=== PATIENT | female | born 2000 | race African-American/Black ===

== ENCOUNTER 2025-01-22 12:35 | Emergency (ER) | payer OTHER, SELFPAY ==
--- NOTE | ~2025-01-22 | CT_ITS ---
EXAMINATION: CT abdomen pelvis w con DATE: 01/22/2025 15:35 INDICATION: Abdominal pain, nausea and vomiting TECHNIQUE: Computed tomography (CT) of the abdomen and pelvis was performed with 100 mL Omnipaque-350 intravenous contrast. Automated exposure control and iterative reconstruction technique were employed. The dose-length product was 513.36 mGy-cm. COMPARISON: None FINDINGS: Visualized lower lungs are clear. Heart size is normal. No pericardial or pleural effusion. Subtle geographic region of focal hepatic steatosis along the ligamentum teres. Gallbladder, spleen, pancreas, bilateral adrenal glands and kidneys are normal. Bowels including the appendix are normal. Bladder, retroverted uterus and bilateral ovaries are normal. No free intraperitoneal gas or fluid. No pathologically enlarged abdominal or pelvic lymphadenopathy. Spina bifida occulta at T12 and L1. IMPRESSION: 1. No acute intra-abdominal/pelvic process. Reviewed, dictated and finalized at location A.
[2025-01-22 12:39] VITALS: BP 142/69; PULSE 76; RESP 20; TEMP 36.1; O2SAT 100
[2025-01-22 14:50] LABS: BEDSIDEPREGUCG Negative (Negative)
[2025-01-22 14:52] LABS: Hematocrit 37.3 % (37.0-47.0); Hemoglobin 11.8 g/dL (12.0-15.0); Immature Granulocyte Percent A 0.5 % (0-0.5); Lymphocytes Absolute Auto 0.90 K/mm3 (0.9-3.2); Mean Corpuscular HGB Conc 31.6 g/dl (32-36); Mean Corpuscular Hemoglobin 27.6 pg (26-34); Mean Corpuscular Volume 87.1 fl (80-100); Nucleated Red Blood Cells Absolute Auto 0.000 K/mm3 (0.0-0.012); Nucleated Red Blood Cells Perc 0.0 % (0.0-0.2); Platelet Count Result 337 k/mm3 (150-375); Red Blood Count 4.28 M/mm3 (4.2-5.4); White Blood Count 10.7 K/mm3 (4.5-10.0)
[2025-01-22 15:00] LABS: Add Urine Microscopic? YES; Appearance Urine Clear (Clear); Glucose Urine UA Negative (Negative); Leukocyte Esterase Ur 2+ LEU/UL (Negative); Nitrate Urine Negative (Negative); Non Pathogenic Casts 0-2; Specific Grav Ur 1.029 (1.001-1.035)
[2025-01-22] MEDS: SODIUM CHLORIDE 0.9% IV 1,000 ML 999 ML IV CONT ×2 (15:04→15:05)
[2025-01-22] MEDS: FAMOTIDINE 20 MG/2 ML VIAL IV PUSH (15:05)
[2025-01-22] MEDS: PROCHLORPERAZINE EDISYLATE 10 MG/2 ML VIAL IV PUSH (15:05)
[2025-01-22] MEDS: PANTOPRAZOLE SODIUM IV 40 MG VIAL IV PUSH (15:05)
--- OUTSIDE RECORDS SUMMARY | 2025-01-22 15:07 | XMS_ITS | Clinical Summary ---
Author Organization [facility] Address [address] [facility] [place] [address] Care Team Providers Care Associate Publisher Name Role Phone Kalen Lima MD Primary Care Provider [phone] Source Comments [facility],non-owned Affiliates and Associated Physician Practices is amultiple site organization consisting of ambulatory clinics and hospital sitesin [place], [place], [place]. This disclosure is being madepursuant to the Care Everywhere program and may not contain all information available regarding this patient. Last updated 18.[facility] Allergies No known active allergies Medications * Be aware that medications may not be up to date on this document. Alwaysverify current medications with the patient. montelukast (SINGULAIR) 10 MG tablet Take 10 mg by mouth at bedtime. Active fluticasone propionate (FLUTICASONE PROPIONATE) 50 MCG/ACT nasal spray [place] 2 Sprays into each nostril at bedtime. 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 I believe that she does have a benign flow murmur, and do not believe that she needs any further cardiology follow up or evaluation at this time. Resolved Problems Problem Noted Date Diagnosed Date Resolved Date Two vessel umbilical cord, antepartum 04/04/2015 04/19/2015 Family History Medical History Relation Name Comments AR<65(female) Maternal Grandfather Relation Name Status Comments Maternal Grandfather Social History Tobacco Use Types Packs/Day Years Used Date Smoking Tobacco: Never Assessed Alcohol Use Standard Drinks/Week Comments No 0 (1 standard drink = 0.6 oz pur e alcohol) Comments No Sex and Gender Information Value Date Recorded Sex Assigned at Not on file Legal Sex Female 4:15 PM CDT Gender Identity Not on file Sexual Orientation Not on file Last Filed Vital Signs Vital Sign Reading Time Taken Comments Blood Pressure 90/58 01/28/2013 12:14 PM CDT Pulse 60 01/28/2013 12:14 PM CDT Temperature - - Respiratory Rate 20 01/28/2013 12:14 PM CDT Oxygen Saturation 99% 01/28/2013 12:14 PM CDT Inhaled Oxygen Concentration - - Weight 67.6 kg (149 lb 0.5 oz) 01/28/2013 12:14 PM CDT Height 173 cm (5' 8.11) 01/28/2013 12:14 PM CDT Body Mass Index 22.59 01/28/2013 12:14 PM CDT Plan of Treatment Health Maintenance Due Date Last Done Comments HIV SCREENING 01/21/2015 HPV VACCINE (1 - 3-dose series) 01/21/2015 CHLAMYDIA/GONORRHEA SCREENING 2016 HEPATITIS C SCREENING 01/17/2018 DTAP/TDAP/TD VACCINES (1 - Tdap) 01/21/2019 HEPATITIS B VACCINE (1 of 3 - 19+ 3-dose series) 01/21/2019 DEPRESSION SCREENING 05/20/2024 COVID-19 VACCINE (1 - 2023-2 5 season) 2025 INFLUENZA VACCINE (#1) 2025 ZOSTER VACCINE (1 of 2) 01/21/2050 HIB VACCINE Aged Out No longer eligi ble based on patient's age to complete this topic MENINGOCOCCAL (Group B) VACC INE SHARED DECISION-MAKING Aged Out No longer eligibl e based on patient's age to complete this topic MENINGOCOCCAL GROUPS A/C/Y/W VACCINE Aged Out No longer eligible b ased on patient's age to complete this topic PNEUMOCOCCAL VACCINE Aged Out No long er eligible based on patient's age to complete this topic Insurance MEDICAID - [place] [employer] [facility] Care Teams Associate Publisher Relationship Specialty Start Date End Date Kalen Lima MD [address] [place] [id number] PCP - General Pediatrics 01/20/13
--- OUTSIDE RECORDS SUMMARY | 2025-01-22 15:07 | XMS_ITS | Clinical Summary ---
Author Organization [facility] at [facility] Address [address] [place] [phone] Care Team Providers Care Classification Clerk Name Role Phone No, Physician Primary Care Provider [phone] Allergies Active Allergy Reactions Criticality Noted Date Comments Chocolate Rash Medium 06/13/2020 Rash Medications No known medications Active Problems Problem Noted Date Diagnosed Date Supervision of other normal , antepartu m 10/29/2024 Marijuana use 10/29/2024 Estimated Date of Delivery Comme nts Yes 06/06/2025 Based on Ultraso und Encounters Date Type Department Care Team Description 11/30/2024 Telephone [facility] Obstetrical Gynecology [address] [place] [phone] Lesvia Dalal MD 10/29/2024 5:36 PM CDT - 10/29/2024 11:59 PM CDT Hospital Encounter [facility] Lab [address] [place] [phone] Encounter for supervision of other normal in first trimester Discharge Disposition: Discharge to home or self care 10/29/2024 2:34 PM CDT - 10/29/2024 11:59 PM CDT Hospital Encounter [facility] [address] [place] [phone] Vaginal odor Discharge Disposition: Discharge to home or self care 10/29/2024 12:45 PM CDT Office Visit [facility] Obstetrical Gynecology [address] [place] [phone] Lesvia Dalal MD Encounter for supervision of other normal in first trimester (Primary Dx); Obesity affecting in first trimester, unspecified obesity type; Vaginal odor 10/29/2024 11:00 AM CDT Clinical Support [facility] Obstetrical Gynecology [address] [place] [address] [place] [phone] 10/29/2024 10:00 AM CDT Ancillary Procedure [facility] Obstetrical Gynecology [address] [place] [address] [place] [phone] Establish gestational age, ultrasound 10/29/2024 Results Follow-Up [facility] Obstetricok Gynecology [address] [place] [phone] Lesvia Dalal MD GTT 50gm 1hr gestational screen, Hemoglobin A1c, CBC without differential, Additional followed-up results: 13 10/29/2024 Orders Only [facility] Obstetrical Gynecology [address] [place] [phone] Osei Goldman MD Encounter for anatomic survey (Primary Dx) 10/29/2024 Telephone [facility] Obstetrical Gynecology [address] [place] [phone] Osei Goldman MD from Last 3 Months Family History Medical History Relation Name Comments Breast cancer Neg Hx Colon cancer Neg Hx Ovarian cancer Neg Hx Uterine cancer Neg Hx Social History Tobacco Use Types Packs/Day Years Used Date Smoking Tobacco: Never Smokeless Tobacco: Never Tobacco Cessation:Counseling Given: Not Answered Nadeau Depression Scale Answer Date Recorded Nadeau Depression Scale Total 2 10/29/2024 The thought of harming myself has occurred to me . Never 10/29/2024 Estimated Date of Delivery Comme nts Yes 06/06/2025 Based on Ultraso und Sex and Gender Information Value Date Recorded Sex Assigned at Not on file Legal Sex Female 8:44 PM [employer]OR OF [employer]IFT [employer] Gender Identity Not on file Sexual Orientation Not on file Obstetrics History Para Term AB IAB SAB Ectopic Multiple Livin g Live Births 2 1 1 1 1 Date Outcome GA Total Labor Labor/2nd/3rd Weight Sex Type Anes PTL Debra A1 A5 Name Clin 016 Term 41w 0d 2.92 kg (6 lb 7 oz) F Vag-S pont Epidur al N Livin g Complications:None Delivery Location:[place] Current Summary Episode Dates Number of Fetuses Estimated Date of Delivery 10/29/2024 - Present (2025) 1 06/06/2025 (set by Anastasiia Forrest, RN on 10/29/2024 based on Ultrasound on 10/29/2024) Dating Summary Based On RUBY GA Diff Last Menstrual Period on 08/14/2024 05/21/2025 +2w2d Ultrasound on 10/29/2024 06/06/2025 Working GA:8w4d Overview and Plan :Brewster Support person:Sal andres Delivery Plans Planned delivery method:Vaginal Planned delivery location:[facility] Overview Surveillance of EDC by 8 week US A+/I/-/-, HIV and RPR NR, Measles non-immune. Will recommend MMR pp Genetics: Anatomy: 20 weeks GCT: 26-28 weeks 3rd trim CBC/HIV/RPR Tdap: 27+ weeks GBS: 36 weeks, or sooner if early delivery indicated Social Barriers: none Mode of feeding: Method of contraception: Delivery Planning: TBD Obesity: early glucose ordered Vitals Pregravid Weight Height TWG (As of 2025) Pregrav id BMI 96.2 kg (212 lb) 175.3 cm (5' 9) 0 kg (0 lb) 31.29 Notes Progress Notes - Clinical Kang pport - 10/29/2024 - GA:8w4d 10/29/2024 - 8w4d - Anastasiia Forrest, RN Pt is doing well today. No issues to report. Dating US completed in US. RUBY reviewed with the pt. PNL ordered today. Early glucose ordered due to BMI. NIPT and carrier screen discussed with the pt. She will let us know if she wants to complete the testing. Pap is up to date. STI urine to be sent to the lab today. Tdap recommendations reviewed with the pt. EPDS and ILAN 7 completed in office. OB call schedule reviewed with the pt. NOB packet reviewed with the pt and her questions were answered. Progress Notes - Office Visi t - 10/29/2024 - GA:8w4d 10/29/2024 - 8w4d - Lesvia Dalal MD Initial OB Visit Subjective: Crys Lambert is a 24 y.o., at 8w4d, based on 1st trimester U/S, who presents for initial visit. No significant medical history. Prior 9 yrs ago. No issues. Having some N/V. Daily. She tried Zofran and B6 without relief. Menstrual History: Patient's last menstrual period was 08/14/2024. Sexual History: OB History 2 Para 1 Term 1 AB Living 1 SAB IAB Ectopic Multiple Live Births 1 # Outcome Date GA Labor/2nd Weight Sex Type Anes PTL Lv A1 A5 1 Term 07/10/15 41w0d 2.92 kg (6 lb 7 oz) F Vag-Spont Epidural N Living Location: Other 2 Current Past medical, surgical, and T[employer]BE [employer]ER history fully reviewed. Objective: BP 116/64 Ht 175.3 cm (5' 9) Wt 212 lb (96.2 kg) LMP 08/14/2024 BMI 31.31 kg/m General: NAD : Normal external labia, normal vaginal rai. See flow sheet for gestation -specific examination and vitals. See Episode Report for physical of record. Ultrasound findings: Single living IUP with LMP inconsistent with CRL today making EDC 06/06/2025. +YS, +FHTs. Normal adnexa. Assessment: Patient is a 24 y.o., at 8w4d, with a brewster confirmed on U/S today. Plan: Discussed management of N/V in , recommend trial of doxylamine +/- B6 again to help with this. Recommended small frequent meals, sips of liquids all throughout day. Surveillance of EDC by 8 week US Labs: ordered Genetics: plans NIPT next visit Anatomy: 20 weeks GCT: 26-28 weeks 3rd trim CBC/HIV/RPR Tdap: 27+ weeks GBS: 36 weeks, or sooner if early delivery indicated Social Barriers: none Mode of feeding: Method of contraception: Delivery Planning: TBD Obesity: early glucose ordered Recurrent BV hx: reporting odor today, vaginitis panel ordered today. Lesvia Dalal MD 10/29/2024 Last Filed Vital Signs Vital Sign Reading Time Taken Comments Blood Pressure 116/64 10/29/2024 12:40 PM CDT Pulse 102 05/23/2022 10:08 PM [employer] Temperature 36.8 C (98.3 F) 05/23/2022 12:50 PM [employer] Respiratory Rate 19 05/23/2022 10:08 PM [employer] Oxygen Saturation 94% 05/23/2022 10:08 PM [employer] Inhaled Oxygen Concentration - - Weight 96.2 kg (212 lb) 10/29/2024 12:40 PM CDT Height 175.3 cm (5' 9) 10/29/2024 12:40 PM CDT Body Mass Index 31.31 10/29/2024 12:40 PM CDT Plan of Treatment Health Maintenance Due Date Last Done Comments Cervical Cancer Screening 2000 DTaP/Tdap/Td Vaccine (1 - Tdap) 01/21/2011 Varicella Vaccines (1 of 2 - 13+ 2-dose series) 01/21/2013 HPV Vaccines (1 - 3-dose series) 01/21/2015 Hepatitis B Screening 01/21/2018 Regular Well Visit/Exam 18-64 07/28/2023 07/27/2022 Influenza Vaccine (#1) 2025 Depression Screening 10/29/2025 10/29/2024 Hepatitis C Screening Completed 10/29/2024 Pneumococcal vaccine <65 Aged Out No longer eligible based on patient's age to complete this topic Procedures Procedure Name Priority Date/Time Associated Diagnosis Comments DRUGS OF ABUSE SCREEN, URINE WITH REFLEX CONFIRMATION Routine 10/29/2024 3:21 PM CDT Encounter for supervision of other normal in first trimester TRICHOMONAS VAGINALIS PCR Routine 10/29/2024 3:21 PM CDT Encounter for supervision of other normal in first trimester URINE CULTURE Routine 10/29/2024 3:21 PM CDT Encounter for supervision of other normal in first trimester N. GONORRHOEAE/C. TRACHOMATIS AMPLIFICATION Routine 10/29/2024 3:21 PM CDT Encounter for supervision of other normal in first trimester VAGINITIS PANEL Routine 10/29/2024 1:01 PM CDT Vaginal odor ANTIBODY SCREEN Routine 10/29/2024 12:36 PM CDT Encounter for supervision of other normal in first trimester ABO/RH Routine 10/29/2024 12:36 PM CDT Encounter for supervision of other normal in first trimester CBC WITHOUT DIFFERENTIAL Routine 10/29/2024 12:36 PM CDT Encounter for supervision of other normal in first trimester HEMOGLOBIN ANALYSIS BY ELECTROPHORESIS Routine 10/29/2024 12:36 PM CDT Encounter for supervision of other normal in first trimester HEMOGLOBIN A1C Routine 10/29/2024 12:36 PM CDT Encounter for supervision of other normal in first trimester TYPE AND SCREEN Routine 10/29/2024 12:36 PM CDT Encounter for supervision of other normal in first trimester GTT 50GM 1HR GESTATIONAL SCREEN Routine 10/29/2024 12:36 PM CDT Obesity affecting in first trimester, unspecified obesity type HEPATITIS B SURFACE ANTIGEN Routine 10/29/2024 12:36 PM CDT Encounter for supervision of other normal in first trimester HEPATITIS C ANTIBODY Routine 10/29/2024 12:36 PM CDT Encounter for supervision of other normal in first trimester HIV 1/2 ANTIBODY PLUS P24 ANTIGEN Routine 10/29/2024 12:36 PM CDT Encounter for supervision of other normal in first trimester MEASLES IGG ANTIBODY Routine 10/29/2024 12:36 PM CDT Encounter for supervision of other normal in first trimester RPR Routine 10/29/2024 12:36 PM CDT Encounter for supervision of other normal in first trimester RUBELLA IGG Routine 10/29/2024 12:36 PM CDT Encounter for supervision of other normal in first trimester VARICELLA ZOSTER ANTIBODY, IGG Routine 10/29/2024 12:36 PM CDT Encounter for supervision of other normal in first trimester US OB UNDER 14 WEEKS W ENDOVAGINAL Schedule Routine, Read Routine (OP Routine) 10/29/2024 10:23 AM CDT Establish gestational age, ultrasound from Last 3 Months Results * N. gonorrhoeae/C. trachomatis Amplification Urine (10/29/2024 3:21 PM CDT) C. trachomatis Not Detected [facility] Comment:Testing performed by : [facility], [address] [place]., [address] N. gonorrhoeae Not Detected [facility] Comment: Interpretive Data This assay detects Chlamydia trachomatis and Neisseria gonorrhoeae by nucleic acid amplification testing (NAAT). This assay has been cleared by the [place] Food and Drug administration. The performance characteristics of this test have been verified by the [facility] Molecular Infectious Disease laboratory. The performance characteristics of this test have not been evaluated in individuals less than 14 years of age. Current Interpretive Data was last revised on 2023. Testing performed by: [facility], [address] [place]., [address] Urine (None) 10/29/2024 3:21 PM CDT 10/30/2024 9:02 AM CDT us Lesvia Dalal MD LAB MICROBIOLOGY - GENERA L ORDERABLES Final Result [facility] VERA [address] [facility] [place] [address] [facility] * (ABNORMAL) Drugs of Abuse Screen, Urine with Reflex Confirmation (10/29/2024 3:21 PM CDT) [facility] Amphetamine, ur Not Detected [facility] 500ng/mL Comment: Interpretive Data - Amphetamines: Samples containing greater than 500 ng/mL d-methamphetamine or other cross-reacting amphetamine compounds are reported as positive. Amphetamine immunoassays are subject to significant false positive rates due to cross-reactivity of non-amphetamine drugs. Confirmatory testing required for definitive results. Current Interpretive Data was last reviewed 2022. Testing performed by: [address] [address] Barbiturates, ur Not Detected CutOff 200ng/mL [facility] Comment: Interpretive Data - Barbiturates: Samples containing greater than 200 ng/mL secobarbital or other cross-reacting barbiturate compounds are reported as positive. False positive and false negative results are possible. Confirmatory testing required for definitive results. Current Interpretive Data was last reviewed 2022. Testing performed by: [address] [address] Benzodiazepines, ur Not Detected CutOff 100ng/mL [facility] Comment: Interpretive Data - Benzodiazepines: Samples containing greater than 100 ng/mL nordiazepam or other cross-reacting compounds are reported as positive. False positive and false negative results are possible. Confirmatory testing required for definitive results. Current Interpretive Data was last reviewed 2022. Testing performed by: [address] [address] Cannabinoids, ur Screen Positive, presumptive (A) CutOff 50 ng/mL [facility] Comment: Interpretive Data - Cannabinoids: Samples containing greater than 50 ng/mL delta-9 THC -COOH or other cross- reacting compounds are reported as positive. False positive and false negative results are possible. Confirmatory testing required for definitive results. Current Interpretive Data was last reviewed 2022. Testing performed by: [address] [address] Cocaine, ur Not Detected CutOff 150ng/mL [facility] Comment: Interpretive Data - Cocaine: Samples containing greater than 150 ng/mL benzoylecgonine or other cross- reacting compounds are reported as positive. False positive and false negative results are possible. Confirmatory testing required for definitive results. Current Interpretive Data was last reviewed 2022. Testing performed by: [address] [address] Fentanyl, Ur Not Detected CutOff 5 ng/mL [facility] Comment: Interpretive Data - Fentanyl: Samples containing greater than 1 ng/mL fentanyl or other cross-reacting fentanyl compounds are reported as positive. False positive and false negative results are possible. Confirmatory testing required for definitive results. Current Interpretive Data was last reviewed 2022. Testing performed by: [address], [place]., [address] Methadone, ur Not Detected CutOff 300ng/mL [facility] Comment: Interpretive Data - Methadone: Samples containing greater than 300 ng/mL d,l-methadone or other cross-reacting compounds are reported as positive. False positive and false negative results are possible. Confirmatory testing required for definitive results. Current Interpretive Data was last reviewed 2022. Testing performed by: [address] [address] Opiates, ur Not Detected CutOff 300ng/mL [facility] Comment: Interpretive Data - Opiates: Samples containing greater than 300 ng/mL morphine or other cross-reacting compounds are reported as positive. False positive and false negative results are possible. Confirmatory testing required for definitive results. Current Interpretive Data was last reviewed 2022. Testing performed by: [address] [address] Oxycodone, ur Not Detected CutOff 100ng/mL [facility] Comment: Interpretive Data - Oxycodone: Samples containing greater than 100 ng/mL oxycodone or other cross-reacting compounds are reported as positive. False positive and false negative results are possible. Confirmatory testing required for definitive results. Current Interpretive Data was last reviewed 2022. Testing performed by: [address] [address] Phencyclidine, ur Not Detected CutOff 25 ng/mL [facility] Comment: Interpretive Data - Phencyclidine: Samples containing greater than 25 ng/mL phencyclidine or other cross-reacting compounds are reported as positive. False positive and false negative results are possible. Confirmatory testing required for definitive results. Current Interpretive Data was last reviewed 2022. Testing performed by: [facility], [address] [place] [address]., [address] Urine Creatinine 202 mg/dL [facility] Comment: Interpretive Data Urine Creatinine: < 10 mg/dL is extremely dilute = or > 10 but < 20 mg/dL is dilute = or > 20 mg/dL is normal Current Interpretive Data was last revised on 2017. Testing performed by: [facility], [address] [place] [address]., [address] Urine 10/29/2024 3:21 PM CDT 10/29/2024 7:28 PM CDT Narrative SHAZIA - 10/29/2024 8:03 PM CDT Drug of Abuse screening is performed by immunoassay for medical purposes only. This is not to be used for Pain Management purposes. If Detected, confirmation testing will be performed for Amphetamines, Cocaine, Fentanyl, Methadone, Opiates, Oxycodone or Phencyclidine. Lesvia Dalal MD LAB URINE ORDERABLES Agata anders Result [facility] [address] [facility] Department [place] [address] * Trichomonas vaginalis PCR Urine (10/29/2024 3:21 PM CDT) Pathologist [facility] Trichomonas DNA Not Detected [facility] Comment: Interpretive Data This assay detects Trichomonas vaginalis by nucleic acid amplification testing (NAAT). This assay has been cleared by the [place] Food and Drug administration. The performance characteristics of this test have been verified by the [facility] Molecular Infectious Disease laboratory. The performance of this test has not been evaluated in individuals less than 18 years of age. Current Interpretive Data was last revised on 2023. Testing performed by: [facility], [address] [place] [address] Urine 10/29/2024 3:21 PM CDT 10/30/2024 9:02 AM CDT Lesvia Dalal MD LAB MICROBIOLOGY - GENERA L ORDERABLES Final Result Performing Organization Address City/[facility] Co de Phone Number [address] [place] [address] [facility] * Urine culture Urine, clean voided (10/29/2024 3:21 PM CDT) Report Final Report: Less than 100,000 colonies/mL (clinically insignificant growth based on current clinical standards) Comment:Testing performed by : [facility], [address] [place] [place] [address] Organism (CLINICALLY INSIGNIFICANT GROWTH [facility]IA Urine, clean voided 10/29/2024 3:21 PM CDT 10/29/2024 10:06 PM CDT Narrative SHAZIA - 10/31/2024 8:26 AM CDT Testing performed by [facility] Microbiology Laboratory ([phone]) Lesvia Dalal MD LAB MICROBIOLOGY - GENERA L ORDERABLES Final Result Performing Organization Address [facility] Co de Phone Number [address] [address] * (ABNORMAL) Vaginitis panel Vaginal (10/29/2024 1:01 PM CDT) Bacterial Vaginosis Detected(A) Not Detected Comment: The BV organism targets of this test can be commensal in women; results should be considered in conjunction with clinical presentation to determine the disease status. Testing performed by: [address] [address] Margy group Not Detected Not Detected [facility]IA Comment:Testing performed by : [address] [address] Margy glabrata/ krusei Not Detected Not Detected [facility] Comment:Testing performed by : [address] [address] Trichomonas DNA Not Detected Not Detected [facility] Comment:Testing performed by : [address] [place] [address] Vaginal 10/29/2024 1:01 PM CDT 10/29/2024 5:31 PM CDT Narrative SHAZIA - 10/29/2024 6:44 PM CDT The Cepheid Xpert Xpress MVP test detects DNA targets from anaerobic bacteria associated with bacterial vaginosis, Margy species associated with vulvovaginal candidiasis, and Trichomonas vaginalis by nucleic acid amplification testing (NAAT). Results should be interpreted in conjunction with other clinical data. This test cannot be used to assess therapeutic success or failure because target nucleic acids may persist following antimicrobial therapy. This test has been cleared by the [place] Food and Drug Administration to aid in the diagnosis of vaginal infections in symptomatic women ages 14 and older. The performance characteristics of this test have been verified by the [facility] Laboratory. us Lesvia Dalal MD LAB MICROBIOLOGY - GENERA L ORDERABLES Final Result SH[facility]IA [address] [facility] Department of Laboratories [place], [place] [id number] * (ABNORMAL) GTT 50gm 1hr gestational screen (10/29/2024 12:36 PM CDT) GTT 50g gest screen 141(H) <=140 mg/dL Comment: Interpretive Data Used for suspected gestational diabetes. The screening test uses 50 grams of glucose with sample obtained 1 hr later. Normal range: < 140 mg/dL. A glucose value of >140 mg/dL generally indicates the need for a full diagnostic tolerance test. Reference Interval Info: Diabetes Care 2005, Vol 28. Supplement 1,S37-S42. Report of the Expert Committee on the Diagnosis and Classification of Diabetes Mellitus. Diabetes Care 2020; 43(Supplement 1):S14-31. Current interpretive data was last revised on 2020. Testing performed by: [address] [address] Blood 10/29/2024 12:3 6 PM CDT 10/29/2024 1:38 PM CDT us Lesvia Dalal MD LAB BLOOD ORDERABLES Agata l Result Performing Organization Address City/[facility] Co de Phone Number SHAZIA [address] [address] * HIV 1/2 Antibody plus p24 Antigen Blood (10/29/2024 12:36 PM CDT) [facility] HIV 1/2 ab + p24 ag Nonreactive Nonreactive Comment:Nonreactive for HIV- 1 antigen and HIV-1/HIV-2 antibodies. No laboratory evidence of HIV infection. If acute HIV infection is suspected, consider testing for HIV-1 RNA. Current interpretive data was last revised on 22. Blood 10/29/2024 12:3 6 PM CDT 10/29/2024 4:36 PM CDT Lesvia Dalal MD LAB MICROBIOLOGY - GENERA L ORDERABLES Final Result Performing Organization Address [facility] Co de Phone Number SHAZIA [address] [address] * (ABNORMAL) Hemoglobin analysis by electrophoresis (10/29/2024 12:36 PM CDT) [facility] RBC 3.90 3.90 - 5.20 M/cumm Comment:Testing performed by : [facility], [address] [place]., [address] Hgb 11.1(L) 11.9 - 15.5 g/dL [facility] VERA Comment:Testing performed by : [facility], [address] [place]., [address] MCV 86.9 81.3 - 96.4 fL [facility]IA VERA Comment:Testing performed by : [facility], [address] [place]., [address] Rdw 13.3 11.1 - 14.9 % [facility] VERA Comment:Testing performed by : [facility], [address] [place]., [address] Hgb electrophoresis , interp Please see comment SHAZIA VERA Comment: Normal hemoglobin pattern for age Reviewed and signed by Kenny Ding MD, PhD 11/03/2024 Testing performed by: [facility], [address] [place]., [address] Hgb A 97.4 96.0 - 98.5 % [facility]IA Comment:Testing performed by : [facility], [address] [place]., [address] Hgb A2 2.6 1.5 - 3.2 % [facility]IA Comment:Testing performed by : [facility], [address] [place]., [address] Hgb F <0.4 0.0 - 0.9 % [facility] Comment:Testing performed by : [facility], [address] [place]., [address] Blood 10/29/2024 12:3 6 PM CDT 10/29/2024 1:39 PM CDT us Lesvia Dalal MD LAB BLOOD ORDERABLES Agata anders Result [facility] [address] [facility] [place] [address] * Hepatitis C antibody Blood (10/29/2024 12:36 PM CDT) Hep C Ab Nonreactive Nonreactive Comment: Antibodies to HCV not detected. Does NOT exclude the possibility of recent exposure to HCV. Current interpretive data was last revised on 22 Interpretive Data Nonreactive: Antibodies to HCV not detected. Does NOT exclude the possibility of recent exposure to HCV. Equivocal: Equivocal for HCV antibodies. Supplemental molecular testing will be automatically performed to determine infection status in accordance with current CDC screening recommendations. Reactive: Positive for HCV antibodies. This may represent current or past HCV infection. Supplemental molecular testing will be automatically performed to determine current infection status in accordance with current CDC screening recommendations. Interpretive data was last revised on 2019. Blood 10/29/2024 12:3 6 PM CDT 10/29/2024 4:36 PM CDT Lesvia Dalal MD LAB MICROBIOLOGY - GENERA L ORDERABLES Final Result [address] [address] * (ABNORMAL) Measles IgG antibody Blood (10/29/2024 12:36 PM CDT) Pathologist [facility] Measles IgG Nonreactiv e(A) Comment: Non-reactive: No detectable antibody to measles. Such individuals are presumed to be uninfected and susceptible to primary infection. Testing performed by: [facility], [address] [place]., [address] Blood 10/29/2024 12:3 6 PM CDT 10/29/2024 7:41 PM CDT Lesvia Dalal MD LAB MICROBIOLOGY - GENERA L ORDERABLES Final Result Performing Organization Address [facility] Co de Phone Number [address] [address] * ABO/Rh (10/29/2024 12:36 PM CDT) Pathologist [facility] ABO/Rh A Positive Comment:Testing performed by : [facility], [address] [place] [address]., [id number] Blood 10/29/2024 12:3 6 PM CDT 10/29/2024 1:38 PM CDT Narrative SHAZIA - 10/29/2024 2:04 PM CDT Has the patient had Daratumumab or Isatuximab in the past 6 months?->Unknown Hx of or candidate for Bone Marrow/Stem Cell transplant?->No Lesvia Dalal MD LAB BLOOD BANK TEST ORDER WILFRIDO Final Result Performing Organization Address City/[facility]/ZIP Co de Phone Number [address] [address] * Rubella IgG antibody Blood (10/29/2024 12:36 PM CDT) Rubella IgG Reactive Reactive Blood 10/29/2024 12:3 6 PM CDT 10/29/2024 4:36 PM CDT Lesvia Dalal MD LAB MICROBIOLOGY - GENERA L ORDERABLES Final Result Performing Organization Address City/[facility]/ZIP Co de Phone Number [address] [place] [address] * RPR Blood (10/29/2024 12:36 PM CDT) Pathologist [facility] RPR Nonreactive Nonreactive Comment:Testing performed by : [facility], [address] [facility] [place]., [address] Blood 10/29/2024 12:3 6 PM CDT 10/29/2024 7:41 PM CDT Lesvia Dalal MD LAB MICROBIOLOGY - GENERA L ORDERABLES Final Result Performing Organization Address City/[facility] Co de Phone Number [address] [place] [address] * Hepatitis B Surface Antigen Blood (10/29/2024 12:36 PM CDT) HepBsAg Nonreactive Nonreactive Blood 10/29/2024 12:3 6 PM CDT 10/29/2024 4:36 PM CDT Levsia Dalal MD LAB MICROBIOLOGY - GENERA L ORDERABLES Final Result Performing Organization Address City/[facility]/ZIP Co de Phone Number [address] [place] [address] * (ABNORMAL) CBC without differential (10/29/2024 12:36 PM CDT) WBC 7.92 3.80 - 9.90 K/cumm Comment:Testing performed by : [address] [address] Hgb 11.1(L) 11.9 - 15.5 g/dL SHAZIA Comment:Testing performed by : [address] [address] Hct 34.5(L) 35.6 - 45.5 % SHAZIA Comment:Testing performed by : [address] [address] Plt 298 150 - 400 K/cumm SHAZIA Comment:Testing performed by : [address] [address] MPV 11.8 9.1 - 12.3 fL SHAZIA Comment:Testing performed by : [address], [address] RBC 3.90 3.90 - 5.20 M/cumm SHAZIA Comment:Testing performed by : [address], [address] MCV 88.5 81.3 - 96.4 fL SHAZIA Comment:Testing performed by : [address] [address] MCH 28.5 27.1 - 33.3 pg SHAZIA Comment:Testing performed by : [address], [address] MCHC 32.2(L) 32.3 - 35.7 g/dL SHAZIA Comment:Testing performed by : [address], [address] RDW CV 13.2 11.1 - 14.9 % SHAZIA Comment:Testing performed by : [address] [address] RDW SD 42.8 35.7 - 48.1 fL SHAZIA Comment:Testing performed by : [address], [address] NRBC abs 0.00 0.00 - 0.01 K/cumm SHAZIA Comment:Testing performed by : [address], [address] Blood 10/29/2024 12:3 6 PM CDT 10/29/2024 1:38 PM CDT Lesvia Dalal MD LAB BLOOD ORDERABLES Agata l Result [address] [place] [address] * Antibody screen (10/29/2024 12:36 PM CDT) Pathologist [facility] Vilma, indirect, Gel Interpretation Negative ABSC Comment:Testing performed by : [facility], [address] [place] [address]., [id number] Blood 10/29/2024 12:3 6 PM CDT 10/29/2024 1:38 PM CDT Narrative [facility] - 10/29/2024 2:15 PM CDT Has the patient had Daratumumab or Isatuximab in the past 6 months?->Unknown Hx of or candidate for Bone Marrow/Stem Cell transplant?->No Lesvia Dalal MD LAB BLOOD BANK TEST ORDER WILFRIDO Final Result Performing Organization Address [facility] Co de Phone Number [address] [address] * Varicella Zoster IgG antibody Blood (10/29/2024 12:36 PM CDT) [facility] VZV IgG Reactive Reactive Comment: Reactive: Results suggest response to immunization or prior exposure to the virus. Testing performed by: [facility], [address] [place]., [address] Blood 10/29/2024 12:3 6 PM CDT 10/29/2024 7:41 PM CDT Lesvia Dalal MD LAB MICROBIOLOGY - GENERA L ORDERABLES Final Result Performing Organization Address City/[facility]/ZIP Co de Phone Number [address] [place] [address] * Hemoglobin A1c (10/29/2024 12:36 PM CDT) Hgb A1C 5.1 4.0 - 5.6 % Comment:Testing performed by : [facility], [address] [place] [address]., [id number] Estimated Average Glucose 100 mg/dL SHAZIA Comment: The ADA recommends reporting an estimated Average Glucose (eAG) with all Hemoglobin A1c results using the equation derived from a study of 507 normal and diabetic adults. Minority populations were underrepresented and children were not included. (Diabetes Care 31:7672-5186, 2008). The eAG is not equivalent to a fasting glucose. Testing performed by: [facility], [address] [place] [address]., [address] Blood 10/29/2024 12:3 6 PM CDT 10/29/2024 1:38 PM CDT us Lesvia Dalal MD LAB BLOOD ORDERABLES Agata l Result SHAZIA [address] [facility] [place] [address] * US OB Under 14 Weeks W Endovaginal (10/29/2024 10:23 AM CDT) Anatomical Region Laterality Modality Abdomen N/A Ultrasound 10/29/2024 10:2 4 AM CDT Impressions 10/29/2024 12:44 PM CDT Single living IUP with LMP inconsistent with CRL today making EDC 06/06/2025. +YS, +FHTs. Normal adnexa. Narrative Procedure Note Lesvia Dalal MD - 10/29/2024 IMPRESSION: Single living IUP with LMP inconsistent with CRL today making EDC06/06/2025. +YS, +FHTs. Normal adnexa. Lesvia Dalal MD IMG OB US PROCEDURES Agata l Result from Last 3 Months Insurance IDPA IDPA Care Teams Classification Clerk Relationship Specialty Start Date End Date No, Physician PCP - General 02/28/21
--- OUTSIDE RECORDS SUMMARY | 2025-01-22 15:07 | XMS_ITS | Patient Health Record ---
Author Organization [employer] Address [address] [place] [id number] Care Team Providers Care Audio Experience Expert Name Role Phone SARIAH PEGUERO Unavailable [phone] REASON FOR REFERRAL No Information SOCIAL HISTORY Tobacco Use: Social History Observation Description Date Details (start date - stop date) Never Smoker NA - NA Sex Assigned At : Social History Observation Description Sex Assigned At Unknown Recreational drug use: Question Answer Notes Are you a: nonsmoker PROBLEMS Problem Type ICD Code Onset Dates Problem Status W/U Status Risk SNOMED Code Notes Problem Supervision of normal first (Z34.00) Active confirmed [id number] PLAN OF TREATMENT No Information Insurance Providers Payer Name Payer Address Payer Phone Subscriber Number Group Number Insured Name Patient Relationship to Insured Coverage Start Date Coverage End Date [facility] [address] [place] [phone] [id number] Crys Lambert Self - patient is the insured 5
[2025-01-22 15:11] LABS: Alanine Aminotransferase 21 U/L (6-35); Albumin Level 4.8 g/dL (3.5-5.1); Alkaline Phosphatase 88 U/L (38-126); Anion Gap 12 mmol/L (4-12); Aspartate Amino Transferase 31 U/L (14-36); Bilirubin,Total 0.5 mg/dL (0.2-1.3); Blood Urea Nitrogen 12 mg/dL (7-17); Calcium 9.8 mg/dL (8.4-10.2); Carbon Dioxide 25 mmol/L (22-30); Chloride 104 mmol/L (98-107); Estimated Glomerular Filt Rate > 60; Glucose 111 mg/dL (65-110); Lipase 36 U/L (23-300); Potassium 4.0 mmol/L (3.4-5.0); Sodium 141 mmol/L (137-145); Total Protein 9.0 g/dL (6.3-8.2)
--- NOTE | 2025-01-22 15:31 | ED_ITS ---
HPI - General Adult General Chief complaint: Abdominal Pain Stated complaint: vomiting blood today Time Seen by Provider: 01/22/25 14:50 History of Present Illness HPI narrative: Patient 25-year-old female presents emergency department with chief complaint of abdominal pain. Patient reports that she went out last night for her birthday and drank a lot of drinks the patient states she believes she may have gotten alcohol poisoning last night and reports that she has been vomiting all throughout the day the patient reports that she vomited so much that she had some blood in her vomit the patient denies black tarry stools reports he still feels nauseated at this time Related Data Allergies Allergy/AdvReac Type Severity Reaction Status Date / Time No Known Allergies Allergy Verified 01/22/25 12:38 Review of Systems 2 Review of Systems: A 10 system review of systems was completed on the patient and is negative except for what is stated in the HPI. Nursing and ancillary documentation was reviewed. Exam 2 Narrative: GENERAL: Well-appearing, well-nourished, and in no acute distress. HEAD: Normocephalic, atraumatic. EYES: PERRLA and EOMI. ENT: Nares clear, no rhinorrhea or epistaxis. Mucous membranes moist. NECK: Supple. CHEST: Clear to auscultation. No respiratory distress. HEART: Regular rate and rhythm. No murmur heard. Normal peripheral pulses. ABDOMEN: Soft, diffuse mild tenderness, nondistended, normal active bowel sounds. EXTREMITIES: Normal range of motion. No edema. SKIN: Warm, dry, no rash. NEURO: No focal deficits. Alert and oriented x3. PSYCH: Normal mood and affect. Course Vital Signs Vital signs: Vital Signs Temperature 36.1 C L 01/22/25 12:39 Pulse Rate 76 01/22/25 12:39 Respiratory Rate 01/22/25 12:39 Blood Pressure 142/69 H 01/22/25 12:39 Pulse Oximetry 100 01/22/25 12:39 Oxygen Delivery Room Air 01/22/25 12:39 Temperature 36.1 C L 01/22/25 12:39 Pulse Rate 76 01/22/25 12:39 Respiratory Rate 20 01/22/25 12:39 Blood Pressure 142/69 H 01/22/25 12:39 Pulse Oximetry 100 01/22/25 12:39 Oxygen Delivery Room Air 01/22/25 12:39 Medical Decision Making [facility] Narrative Medical decision making narrative: Differential diagnosis includes dehydration, gastritis, gastroenteritis, alcohol induced nausea vomiting, UTI, intra-abdominal infection Laboratory studies were obtained showed urinalysis with 4+ ketones and 51-100 white blood cells in the urine 2+ leukocyte esterase CBC showed a white count of 10.7 electrolytes were within normal limits lipase was normal at 36 CT scan of the abdomen pelvis showed no acute abnormality The patient be discharged home with a prescription for Keflex and a prescription for Zofran Vital Signs Vital Signs: Vital Signs Temperature 36.1 C L 01/22/25 12:39 Pulse Rate 76 01/22/25 12:39 Respiratory Rate 20 01/22/25 12:39 Blood Pressure 142/69 H 01/22/25 12:39 Pulse Oximetry 100 01/22/25 12:39 Oxygen Delivery Room Air 01/22/25 12:39 Temperature 36.1 C L 01/22/25 12:39 Pulse Rate 76 01/22/25 12:39 Respiratory Rate 20 01/22/25 12:39 Blood Pressure 142/69 H 01/22/25 12:39 Pulse Oximetry 100 01/22/25 12:39 Oxygen Delivery Room Air 01/22/25 12:39 Lab Data 01/22/25 14:47 01/22/25 14:47 Labs: Lab Results 01/22/25 01/22/25 Range/Units 14:45 14:47 WBC 10.7 H (4.5-10.0) K/mm3 RBC 4.28 (4.2-5.4) M/mm3 Hgb 11.8 L (12.0-15.0) g/dL Hct 37.3 (37.0-47.0) % MCV 87.1 (80-100) fl MCH 27.6 (26-34) pg MCHC 31.6 L (32-36) g/dl RDW 13.4 (11.5-14.5) % Plt Count 337 (150-375) k/mm3 MPV 11.4 H (7.4-10.4) fl Immature Gran % (Auto) 0.5 (0-0.5) % Neut % (Auto) 87.7 H (45.5-73.1) % Lymph % (Auto) 8.4 L (18.3-44.2) % [place] % (Auto) 3.4 (2.6-8.5) % Eos % (Auto) 0.0 (0-4.4) % Baso % (Auto) 0.0 L (0.2-1.2) % Lymph # (Auto) 0.90 (0.9-3.2) K/mm3 [place] # (Auto) 0.4 (0.1-0.6) K/mm3 Eos # (Auto) 0.0 (0-0.3) K/mm3 Baso # (Auto) 0.0 (0.0-0.1) K/mm3 Abs Immat Gran (auto) 0.05 H (0.00-0.031) K/mm3 Absolute Neuts (auto) 9.4 H (1.3-6.7) K/mm3 Absolute Nucleated RBC 0.000 (0.0-0.012) K/mm3 Nucleated RBC % 0.0 (0.0-0.2) % Sodium 141 (137-145) mmol/L Potassium 4.0 (3.4-5.0) mmol/L Chloride 104 (98-107) mmol/L Carbon Dioxide 25 (22-30) mmol/L Anion Gap 12 (4-12) mmol/L BUN 12 (7-17) mg/dL Creatinine 0.64 L (0.7-1.0) mg/dL Estim Creat Clear Calc Not Reportable Estimated GFR > 60 (59 - ) Glucose 111 H (65-110) mg/dL Calcium 9.8 (8.4-10.2) mg/dL Total Bilirubin 0.5 (0.2-1.3) mg/dL AST 31 (14-36) U/L ALT 21 (6-35) U/L Alkaline Phosphatase 88 (38-126) U/L Total Protein 9.0 H (6.3-8.2) g/dL Albumin 4.8 (3.5-5.1) g/dL Lipase 36 (23-300) U/L Urine Color Yellow (Yellow) Urine Appearance Clear (Clear) Urine pH 8.0 (5.0-9.0) Ur Specific [place] 1.029 (1.001-1.035) Urine Protein 1+ H (Negative) mg/dL Urine Glucose (UA) Negative (Negative) mg/dL Urine Ketones 4+ H (Negative) mg/dL Ur Blood (Man) 2+ H (Negative) Urine Nitrate Negative (Negative) Urine Bilirubin Negative (Negative) Urine Urobilinogen 1.0 (<2.0) mg/dL Leukocyte Esterase Rfl 2+ H (Negative) CHANDLER/UL Urine RBC 11-20 H (0-2) /hpf Urine WBC 51-100 H (0-3) /hpf Ur Squamous Epith Cells None seen (Few) /hpf Urine Bacteria None seen /hpf Urine Casts 0-2 POC Urine HCG, Qual Negative (Negative) Discharge Plan Discharge Clinical Impression: Nausea and vomiting, Abdominal pain, UTI (urinary tract infection) Patient Disposition: Home Condition: Stable Instructions: Antibiotic Form, Urinary Tract Infection in Women (ED), Acute Nausea and Vomiting (ED), Abdominal Pain (ED) Patient Language: Cook Islander Prescriptions: New ondansetron 4 mg tablet,disintegrating 4 mg PO Q8H PRN (Reason: nausea and vomiting) Qty: 10 0RF cephalexin 500 mg capsule 500 mg PO Q12H 7 Days Qty: 14 0RF Follow-up/Referrals: Mendel Curiel MD [Physician, Family Practice] PHYSICIAN,CLINICAL RN LIAISON [Primary Care Provider, Internal Medicine] Time of Disposition: 16:12
[2025-01-22 16:09] VITALS: BP 120/53; PULSE 70; RESP 16; TEMP 36.3; O2SAT 100
== END 2025-01-22 16:46 | disposition home or self-care (01) ==
PROVIDERS: Student in an Organized Health Care Education/Training Program; Emergency Provider Emergency Medicine
DX: N39.0 Urinary tract infection, site not specified (principal); R11.2 Nausea with vomiting, unspecified; R10.9 Unspecified abdominal pain
CPT/HCPCS: 36415; 74177; 80053; 81001; 81025; 83690; 85025; 87086; 96361; 96374; 96375; 99284; J0780; J1200; J2470; J7030; Q9967